=== PATIENT | male | born 1990 | race Caucasian/White ===

== ENCOUNTER 2020-08-29 17:27 | Outpatient (REF) | payer OTHER, SELFPAY | END 2020-08-29 17:28 | disposition home or self-care (01) | LOC: HO.LAB 17:27 | PROVIDERS: Visit Provider Internal Medicine | DX: Z20.828 Contact with and (suspected) exposure to other viral communicable diseases (principal) | CPT/HCPCS: U0003 ==

== ENCOUNTER 2020-12-28 07:50 | Outpatient (REF) | payer OTHER, SELFPAY | END 2020-12-28 07:51 | disposition home or self-care (01) | LOC: HO.LAB 07:50 | PROVIDERS: Visit Provider Internal Medicine | DX: Z20.822 Contact with and (suspected) exposure to COVID-19 (principal) | CPT/HCPCS: 36415; C9803; U0003; U0005 ==

== ENCOUNTER 2021-03-01 12:13 | Outpatient (REF) | payer OTHER, SELFPAY ==
[2021-03-01 12:31] LABS: COVID-19 Test Negative (Negative)
== END 2021-03-01 12:14 | disposition home or self-care (01) ==
LOC: HO.LAB 12:13
PROVIDERS: Visit Provider Internal Medicine
DX: Z20.822 Contact with and (suspected) exposure to COVID-19 (principal)
CPT/HCPCS: 36415; 87635; C9803

== ENCOUNTER 2021-09-11 12:01 | Outpatient (REF) | payer OTHER, SELFPAY ==
[2021-09-11 12:37] LABS: COVID-19 Test Negative (Negative)
== END 2021-09-11 12:02 | disposition home or self-care (01) ==
LOC: HO.LAB 12:01
PROVIDERS: Visit Provider Internal Medicine
DX: Z20.822 Contact with and (suspected) exposure to COVID-19 (principal)
CPT/HCPCS: 36415; 87635; C9803

== ENCOUNTER 2022-04-01 07:54 | Outpatient (REF) | payer OTHER, SELFPAY ==
[2022-04-01 08:34] LABS: Hematocrit 48.8 % (42.0-52.0); Hemoglobin 17.1 g/dl (14.0-18.0); Mean Corpuscular Hemoglobin 29.8 pg (27.0-33.0); Mean Platelet Volume 9.9 fL (9.4-12.4); Platelet Count 169 X10*3/uL (160-400); Red Blood Count 5.74 X10*6/uL (4.60-5.80); Red Cell Distribution Width 12.7 % (11.0-16.0); White Blood Count 6.4 X10*3/uL (4.8-10.8)
[2022-04-01 08:47] LABS: Estimated Average Glucose 80 mg/dL; Hemoglobin A1c % 4.4 %
[2022-04-01 08:54] LABS: Alanine Aminotransferase 50 U/L (0-40); Albumin Level 4.6 g/dL (3.5-5.0); Alkaline Phosphatase 118 U/L (39-117); Anion Gap 13 (12-20); Aspartate Amino Transferase 33 U/L (5-37); Blood Urea Nitrogen 15 mg/dL (9-16); Calcium 9.2 mg/dL (8.4-10.2); Carbon Dioxide 26 mmol/L (22-29); Chloride 104 mmol/L (96-108); Cholesterol 195 mg/dL; Estimated Glomerular Filt Rate > 60; Glucose Fasting 112 mg/dL (60-99); HDL Cholesterol 46 mg/dL; LDL Cholesterol Calculated 103 mg/dl; Potassium 4.8 mmol/L (3.3-5.1); Sodium 138 mmol/L (135-145); Total Protein 7.8 g/dL (6.5-8.0); Triglycerides 231 mg/dL
[2022-04-01 09:15] LABS: TSH reflex Free T4 1.44 uIU/mL (0.32-4.0)
== END 2022-04-01 07:55 | disposition home or self-care (01) ==
LOC: HO.LAB 07:54
PROVIDERS: Visit Provider Physician Assistant
DX: Z13.220 Encounter for screening for lipoid disorders (principal); Z13.29 Encounter for screening for other suspected endocrine disorder
CPT/HCPCS: 36415; 80053; 80061; 83036; 84443; 85027

== ENCOUNTER 2023-07-18 08:26 | Outpatient (AMB) | payer BC, SELFPAY ==
--- NOTE | 2023-07-18 08:37 | A.OFFPC_ITS ---
Vital Signs 07/18/23 08:39 Height 5 ft 10 in Weight 217 lb 8 oz BMI 31.2 BP 130/72 Blood Pressure Location Lt brachial Position Sitting Pulse 80 Pulse Source Pulse Oximeter Pulse Oximetry (%) 99 Oxygen Delivery Method Room Air Intake Visit Reasons: Bp Med review Intake Note: Patient is here to follow up on HTN and med review. 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 Reed Press Feeder: Not Required per policy Accompanied by: Self / Same As Patient Allergies sulfamethoxazole [From BACTRIM] Allergy (Mild, Verified 07/18/23 08:49) UNKNOWN trimethoprim [From BACTRIM] Allergy (Mild, Verified 07/18/23 08:49) UNKNOWN Medication List - Last Reconciled 07/18/23 by BUSHRA Cameron hydrochlorothiazide 25 mg PO DAILY 90 days Tobacco use date assessed: 07/18/23 Dental Screening Dental Screen Date: 07/18/23 Did you have a dental visit in the last 12 months?: Yes Did you have a dental problem in the last 6 months where you did not have access to dental care?: No Was dental information given to patient?: Patient has dentist HPI HPI Comments History of Present Illness Details 33-year-old male past medical history si gnificant for hy pertriglyceridemia, hypertension and obesity. Patient of Enrico Moya last seen in March 2022. Patient presents today for hypertension follow-up. Patient states bloodpressure continues to be elevated running below 130's/ 70's-80. Patient requesting an increase in his blood pressure medication. Patient reports he does try to be consistent follow low-salt diet, states he has been less consistent hi s exercise but he is trying to get back on track with that. [facility] Medical History (Updated 04/01/22 @ 09:46 by Jayjay Moya PA-C) Tenonitis of left orbit HTN, goal to be determined Surgical History (Updated 07/18/23 @ 08:42 by CITLALY Leger) No pertinent past surgical history Family History (Updated 07/18/23 @ 08:42 by CITLALY Leger) Mother FH: HTN (hypertension) Heart attack, Onset Age: 68 Father No problems noted. 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 1. Little interest or pleasure in doing things: not at all 2. Feeling down, depressed, or hopeless: not at all 3. Trouble falling or staying asleep, or sleeping too much: not at all 4. Feeling tired or having little energy: not at all 5. Poor appetite or overeating: not at all 6. Feeling bad about yourself - or that you are a failure or have let yourself or your family down: not at all 7. Trouble concentrating on things, such as reading the newspaper or watching television: not at all 8. Moving or speaking so slowly that other people could have noticed. Or the opposite - being so fidgety or restless that you have been moving around a lot more than usual: not at all 9. Thoughts that you would be better off or of hurting yourself in some way: not at all Total score: 0 Depression Screening Interpretation: Negative Source: Developed by Drs. Albert Cleveland, Carine Sweet, Tate Vidales and colleagues, with an educational praneeth from [employer]. Thrive Questionnaire Date Thrive assessed: 07/18/23 I am a: Patient What is your living situation today?: I have a steady place to live Within the past 12 months, did the food you bought not last and you didn't have the money to get more?: Never true Within the past 12 months, did you worry whether your food would run out before you got money to buy more?: Never true Do you have trouble paying for medicines?: No Do you have trouble getting transportation to medical appointments?: No Do you have trouble paying your heating and electricity bill?: No Do you have trouble taking care of your child, family member or friend?: No Do you have trouble with day-to-day activities such as bathing, preparing meals, shopping, managing finances, etc.?: No Are you currently unemployed and looking for a job?: No Are you interested in more education?: No Currently or been in a relationship where the following occur: no concerns reported AUDIT C Alcohol Use Questionnaire (AUDIT-C) 1. How often do you have a drink containing alcohol?: 2-4 times a month 2. How many drinks containing alcohol do you have on a typical day when you are drinking?: 1 or 2 Total Score: 2 DAPHNEY-7 AMB Questionnaire DAPHNEY-7 Date DAPHNEY - 7 assessed: 07/18/23 Feeling nervous, anxious, or on edge: 0 = Not at all Not being able to stop or control worryin = Not at all Worrying too much about different things: 0 = Not at all Trouble relaxin = Not at all Being so restless that it is hard to sit still: 0 = Not at all Becoming easily annoyed or irritable: 0 = Not at all Feeling afraid as if something awful might happen: 0 = Not at all Total DAPHNEY-7 score (0-4 normal; 5-9 mild; 10-14 moderate; 15-21 severe): 0 Source: Developed by Drs. Albert Cleveland, Carine Sweet, Tate Vidales and colleagues, with an educational praneeth from [employer]. Review of Systems Const Denies chills, Denies fatigue, Denies fever(s) and Denies poor appetite Eyes Denies no additional complaints ENT Reports Normal hearing present Card Denies chest pain, Denies syncope, Denies rapid heart rate and Denies dyspnea Resp Denies cough and Denies dyspnea GI Denies change in stool character, Denies constipation, Denies diarrhea, Denies nausea and Denies vomiting Denies dysuria, Denies urinary frequency and Denies urinary urgency Neuro Reports Normal hearing present, Denies confusion and Denies syncope Psych Denies confusion Endo Denies fatigue Physical exam (Primary Care) Vital Signs: Last Vital Signs Pulse 80 07/18/23 08:39 BP 130/72 07/18/23 08:39 Pulse Ox 99 07/18/23 08:39 Oxygen Delivery Method Room Air 07/18/23 08:39 BMI result Body Mass Index 31.2 Tobacco/Smoking Status: Tobacco use Status Tobacco use date assessed 07/18/23 07/18/23 08:43 Patient Tobacco Use Status Never used Tobacco 07/18/23 08:43 Tobacco use type Cigarette 07/18/23 08:43 e-Cigarette/Vaping Use Never Used 07/18/23 08:43 PHQ-9: PHQ-9 Score PHQ-9: Total score 0 07/18/23 08:46 Depression Screening Interpretation: Negative Thrive Assessment: Date of Thrive Assessment Date Thrive assessed 07/18/23 07/18/23 08:43 Currently or been in a relationship where the following occur: no concerns reported Const General: No confusion Orientation/consciousness: No confusion HENMT Head: Yes normocephalic and Yes atraumatic Eyes Conjunctivae: conjunctivae normal Chest Chest palpation & inspection: normal inspection of the chest Resp Effort & Inspection: normal respiratory effort Auscultation: clear to auscultation bilaterally, no crackles, no rhonchi and no wheezes Cardio Rate: regular rate Rhythm: regular rhythm Heart sounds: S1 normal heart sound present and S2 normal heart sound present GI Inspection: Yes normal to inspection Neuro General: No confusion Cranial nerves: Yes Normal hearing present Extrem General: No edema Assessment and Plan Assessment & Plan (1) HTN (hypertension): Code(s): I10 - Essential (primary) hypertension Qualifiers: Hypertension type: primary hypertension Qualified Code(s): I10 - Essential (primary) hypertension Plan: Will increase hydrochlorothiazide to 37.5mg daily. Patient advised to continue to follow low-salt diet and exercise. (2) Obese: Code(s): E66.9 - Obesity, unspecified Qualifiers: Obesity type: due to excess calories Obesity classification: adult class 1 (BMI 30 - 34.9) Serious obesity comorbidity presence: without serious comorbidity Body mass index: BMI 31.0-31.9 Qualified Code(s): E66.09 - Other obesity due to excess calories; Z68.31 - Body mass index [BMI] 31.0-31.9, adult Plan: Patient recommended diet exercise to reduce BMI Plan Follow-up 3 months for physical exam. Medications: Changed From hydrochlorothiazide 25 mg PO DAILY 90 days 90 tabs 1RF I10 - Essential (primary) hypertension To hydrochlorothiazide 37.5 mg (1.5 x 25 mg) PO DAILY 135 tabs 1RF 90 days I10 - Essential (primary) hypertension Coding Level of Care Code Est Pt Level 3 (33573) Diagnoses Primary hypertension I10 Hypertension type: primary hypertension Class 1 obesity due to excess calories without serious comorbidity with body mass index (BMI) of 31.0 to 31.9 in adult E66.09; Z68.31 Obesity type: due to excess calories Obesity classification: adult class 1 (BMI 30 - 34.9) Serious obesity comorbidity presence: without serious comorbidity Body mass index: BMI 31.0-31.9
[2023-07-18 08:39] VITALS: BP 130/72; PULSE 80; O2SAT 99; BMI 31.2
== END 2023-07-18 08:54 | disposition home or self-care (01) ==
PROVIDERS: PCP Physician Assistant; Visit Provider Nurse Practitioner Family
DX: I10 Essential (primary) hypertension (principal); E66.09 Other obesity due to excess calories; Z68.31 Body mass index [BMI] 31.0-31.9, adult
CPT/HCPCS: 99213

== ENCOUNTER 2024-04-28 15:11 | Outpatient (AMB) | payer BC, SELFPAY ==
[2024-04-28 15:18] VITALS: BP 158/98; PULSE 90; O2SAT 100; BMI 29.3
--- NOTE | 2024-04-28 15:18 | MHC.PC.OV ---
Vital Signs 04/28/24 15:18 04/28/24 15:40 Height 5 ft 10 in Weight 204 lb BMI 29.3 BP 158/98 H 154/80 H Blood Pressure Location Lt brachial Position Sitting Pulse 90 Pulse Source Pulse Oximeter Pulse Oximetry (%) 100 Oxygen Delivery Method Room Air Intake Visit Reasons: PE Intake Note: Patient is here today for a physical. 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 Accompanied by: Self / Same As Patient Allergies sulfamethoxazole [From BACTRIM] Allergy (Mild, Verified 04/28/24 15:34) UNKNOWN trimethoprim [From BACTRIM] Allergy (Mild, Verified 04/28/24 15:34) UNKNOWN Medication List - Last Reconciled 04/28/24 by Jayjay Moya PA-C hydrochlorothiazide 37.5 mg (1.5 x 25 mg) PO DAILY 90 days Tobacco use date assessed: 04/28/24 Dental Screening Dental Screen Date: 04/28/24 Did you have a dental visit in the last 12 months?: Yes Did you have a dental problem in the last 6 months where you did not have access to dental care?: No Was dental information given to patient?: Patient has dentist HPI PE HPI Details Patient is a 34-year-old male here today for new patient annual physical. Patient has a past medical history significant for hypertension and obesity. Concerns--> reports he had gotten an ultrasound recently and did show a gallbladder polyp that may have increased in size. He has no GI symptoms or abdominal pains. He would like another ultrasound for evaluation. .. Hypertension: Patient continues on hydrochlorothiazide 37 mg. Blood pressure today in office elevated, he does report taking his blood pressures at home with a cough though does not tries to readings. He does report having a family history of elevated blood pressure and reports last week his mother did have a heart attack due to hypertension. Vaccines: Up-to-date with COVID vaccines, needs tetanus vaccine. [facility] Medical History Tenonitis of left orbit HTN, goal to be determined Surgical History No pertinent past surgical history Family History Mother FH: HTN (hypertension) Heart attack, Onset Age: 68 Father No problems noted. Other Substance use disorder Social History (Updated 04/28/24 @ 15:38 by Jayjay Moya PA-C) Housing: Condominium Alcohol intake: current Alcohol intake frequency: a few times a month Alcohol type: beer Patient Tobacco Use Status: Never used Tobacco Tobacco use type: Cigarette e-Cigarette/Vaping Use: Never Used service: No Current occupational status: employed Current occupation: [employer] Cognitive needs: No Hearing needs: No Vision needs: No Questionnaire PHQ-9 Over the last 2 weeks, how often have you been bothered by any of the following problems? 1. Little interest or pleasure in doing things: not at all 2. Feeling down, depressed, or hopeless: not at all 3. Trouble falling or staying asleep, or sleeping too much: not at all 4. Feeling tired or having little energy: not at all 5. Poor appetite or overeating: not at all 6. Feeling bad about yourself - or that you are a failure or have let yourself or your family down: not at all 7. Trouble concentrating on things, such as reading the newspaper or watching television: not at all 8. Moving or speaking so slowly that other people could have noticed. Or the opposite - being so fidgety or restless that you have been moving around a lot more than usual: not at all 9. Thoughts that you would be better off or of hurting yourself in some way: not at all Total score: 0 Depression Screening Interpretation: Negative Depression Screening Done: Yes Source: Developed by Drs. Albert Cleveland, Carine Sweet, Tate Vidales and colleagues, with an educational praneeth from [employer]. Thrive Questionnaire Date Thrive assessed: 04/28/24 I am a: Patient What is your living situation today?: I have a steady place to live Within the past 12 months, did the food you bought not last and you didn't have the money to get more?: Never true Within the past 12 months, did you worry whether your food would run out before you got money to buy more?: Never true Do you have trouble paying for medicines?: No Do you have trouble getting transportation to medical appointments?: No Do you have trouble paying your heating and electricity bill?: No Do you have trouble taking care of your child, family member or friend?: No Do you have trouble with day-to-day activities such as bathing, preparing meals, shopping, managing finances, etc.?: No Are you currently unemployed and looking for a job?: No Are you interested in more education?: No Please select the resources that you would like help with: None Currently or been in a relationship where the following occur: No concerns reported THRIVE Score: 0 AUDIT C Alcohol Use Questionnaire (AUDIT-C) 1. How often do you have a drink containing alcohol?: 2-4 times a month 2. How many drinks containing alcohol do you have on a typical day when you are drinking?: 1 or 2 3. How often do you have six or more drinks on one occasion?: Never Total Score: 2 DAPHNEY-7 AMB Questionnaire DAPHNEY-7 Date DAPHNEY - 7 assessed: 04/28/24 Feeling nervous, anxious, or on edge: 0 = Not at all Not being able to stop or control worryin = Not at all Worrying too much about different things: 0 = Not at all Trouble relaxin = Not at all Being so restless that it is hard to sit still: 0 = Not at all Becoming easily annoyed or irritable: 0 = Not at all Feeling afraid as if something awful might happen: 0 = Not at all Total DAPHNEY-7 score (0-4 normal; 5-9 mild; 10-14 moderate; 15-21 severe): 0 Source: Developed by Drs. Albert Cleveland, Carine Sweet, Tate Vidales and colleagues, with an educational praneeth from [employer]. DAPHNEY-7 Assessment Billing DAPHNEY-7 Assessment Tool: DAPHNEY-7 Assessment 56522 Review of Systems Const Denies body aches, Denies chills, Denies excessive sweating, Denies fatigue, Denies fever(s) and Denies headache(s) Eyes Denies blurry vision ENT Denies dysphagia, Denies vertigo, Denies dizziness, Denies headache(s), Denies hearing loss and Denies tinnitus Card Denies chest pain, Denies chest pain with activity, Denies syncope, Denies irregular heart rhythm and Denies dyspnea Resp Denies chest congestion, Denies cough, Denies hemoptysis, Denies dyspnea and Denies wheezing GI Denies abdominal pain, Denies melena, Denies hematochezia, Denies coffee ground emesis, Denies dysphagia, Denies diarrhea, Denies nausea and Denies vomiting Denies difficulty urinating, Denies dysuria, Denies urinary frequency, Denies urinary hesitancy and Denies urinary urgency Musc Denies arthralgias, Denies limited range of motion, Denies muscle cramps and Denies muscle weakness Skin/Breast Denies rash and Denies skin ulcer Neuro Denies Abnormal speech present, Denies confusion, Denies vertigo, Denies dizziness, Denies syncope, Denies headache(s), Denies memory loss and Denies seizure-like activity Psych Denies anxiety, Denies confusion, Denies depression, Denies memory loss, Denies panic attacks and Denies paranoia Endo Denies excessive sweating, Denies fatigue, Denies flushing, Denies polydipsia and Denies polyuria Aller/Immun Denies wheezing Physical exam (Primary Care) Vital Signs: Last Vital Signs Pulse 90 04/28/24 15:18 BP 154/80 H 04/28/24 15:40 Pulse Ox 100 04/28/24 15:18 Oxygen Delivery Method Room Air 04/28/24 15:18 BMI result Body Mass Index 29.3 Tobacco/Smoking Status: Tobacco use Status Tobacco use date assessed 04/28/24 04/28/24 15:20 Patient Tobacco Use Status Never used Tobacco 04/28/24 15:38 Tobacco use type Cigarette 04/28/24 15:38 e-Cigarette/Vaping Use Never Used 04/28/24 15:38 PHQ-9: PHQ-9 Score PHQ-9: Total score 0 04/28/24 15:53 Depression Screening Interpretation: Negative Thrive Assessment: Date of Thrive Assessment Date Thrive assessed 04/28/24 04/28/24 15:22 Currently or been in a relationship where the following occur: No concerns reported Const General: cooperative, comfortable, no acute distress, alert and awake; No confusion Orientation/consciousness: oriented to person, oriented to place, patient oriented x3 and No confusion HENMT Head: Yes normocephalic Ears: external ears normal and TM's normal bilaterally Face and sinus: No sinus tenderness Mouth: Normal oral and palatal mucosa present and tongue normal Teeth and gingiva: dentition normal and gingiva normal Throat: Yes posterior oropharynx normal, Yes tonsils normal and Yes uvula midline Eyes Conjunctivae: conjunctivae normal Sclerae: sclerae normal Pupils: Equal, round and reactive pupils present EOM: EOMs intact bilaterally Direct Ophthalmoscopy: No no photophobia Neck Neck: Yes no lymphadenopathy, No tender and Yes no JVD Thyroid: Thyroid normal Carotids: no bruits Chest Chest palpation & inspection: no tenderness Resp Effort & Inspection: normal respiratory effort, no audible wheezes, not labored and no stridor Auscultation: no crackles, no rales, no rhonchi and no wheezes Cardio Jugular venous distension: no JVD Rate: regular rate, not bradycardic and not tachycardic Rhythm: regular rhythm Bruits: no carotid bruits Peripheral pulses: Peripheral pulses 2+ throughout GI Inspection: Yes normal to inspection, No abdominal wall ecchymosis and No visible herniation Palpation (GI): Soft to palpation, nontender, no guarding, not rigid and No hepatosplenomegaly present Auscultation: normoactive bowel sounds General: Yes no CVA tenderness Back/Spine/Pelvis Back: no CVA tenderness and No back tenderness Cervical Spine: cervical ROM normal Thoracic/Lumbar Spine: thoracic and lumbar spine normal to inspection, straight leg raise negative bilaterally, No thoraco-lumbar ROM limited and No lumbar spinal tenderness Skin Lesions: no lesions Rashes: no rashes Wounds: no wounds Neuro General: oriented to person, oriented to place, patient oriented x3, CN's II-XI intact bilaterally and No confusion Cranial nerves: Yes Equal, round and reactive pupils present and Yes Normal accommodation reflex present Cognition (Neuro): normal cognition Speech: No Abnormal speech present Gait exam (Neuro): Normal gait present Motor exam (neuro): 5/5 motor strength present throughout Extrem Right upper extremity: full ROM; no cyanosis Left upper extremity: full ROM; no cyanosis Right lower extremity: no edema Left lower extremity: no edema Psych Appearance: grossly normal Mental Status: mental status grossly normal Affect: normal affect Attitude: cooperative Thought process: Normal thought process present Assessment and Plan Assessment & Plan (1) Annual physical exam: Code(s): Z00.00 - Encounter for general adult medical examination without abnormal findings (2) HTN (hypertension): Code(s): I10 - Essential (primary) hypertension Qualifiers: Hypertension type: primary hypertension Qualified Code(s): I10 - Essential (primary) hypertension Plan: Patient Blood pressure elevated Today in office. Believes he had a stressful day and this is the reason for his elevated blood pressure. He will implement more granular blood pressure readings at home and if above 140/90 will consider adding on new blood pressure medication. (3) Hypertriglyceridemia: Code(s): E78.1 - Pure hyperglyceridemia Plan: Patient has a history of hypertriglyceridemia. Has made lifestyle modifications and has lost weight since last office visit. Will recheck fasting lipid panel with goal triglycerides to be below 200. (4) Gallbladder polyp: Code(s): K82.4 - Cholesterolosis of gallbladder Plan: Has a history of gallbladder polyp. Has no GI symptoms. Will send for limited abdominal ultrasound evaluate gallbladder polyp. Orders: Orders US abdomen limited 04/28/24 K82.4 - Cholesterolosis of gallbladder Patient Instructions: Goal: Blood pressure to be below 140/90 Barriers: Adherence to physical activity and healthy eating habits Coding Level of Care Code Est Pt Prev Care 18-39y(56823) Diagnoses Annual physical exam Z00.00 Primary hypertension I10 Hypertension type: primary hypertension Hypertriglyceridemia E78.1 Gallbladder polyp K82.4 Additional Codes DAPHNEY-7 Assessment Billing - DAPHNEY-7 Assessment Tool: DAPHNEY-7 Assessment [id number] ([id number])
[2024-04-28 15:40] VITALS: BP 154/80
== END 2024-04-28 15:57 | disposition home or self-care (01) ==
PROVIDERS: PCP Physician Assistant; Visit Provider Physician Assistant
DX: Z00.00 Encounter for general adult medical examination without abnormal findings (principal); I10 Essential (primary) hypertension; E78.1 Pure hyperglyceridemia; K82.4 Cholesterolosis of gallbladder
CPT/HCPCS: 99395

== ENCOUNTER 2024-05-17 13:56 | Outpatient (AMB) | payer BC, SELFPAY ==
--- NOTE | 2024-05-17 13:58 | MHC.PC.OV ---
Vital Signs 05/17/24 14:01 05/17/24 14:12 Height 5 ft 10 in Weight 212 lb 4 oz BMI 30.5 BP 160/100 H 140/88 H Blood Pressure Location Lt brachial Position Sitting Pulse 86 Pulse Source Pulse Oximeter Pulse Oximetry (%) 99 Oxygen Delivery Method Room Air Intake Visit Reasons: Follow-up blood pressure/ lab results Intake Note: Patient is here to follow up on BP CHECK. Internal Medicine Hospitalist Required: No Accompanied by: Self / Same As Patient Allergies sulfamethoxazole [From BACTRIM] Allergy (Mild, Verified 05/17/24 14:14) UNKNOWN trimethoprim [From BACTRIM] Allergy (Mild, Verified 05/17/24 14:14) UNKNOWN Medication List - Last Reconciled 05/17/24 by Jayjay Moya PA-C hydrochlorothiazide 37.5 mg (1.5 x 25 mg) PO DAILY 90 days Tobacco use date assessed: 04/28/24 Dental Screening Dental Screen Date: 04/28/24 HPI Follow-up blood pressure/ lab results HPI Details Patient is a 34-year-old male here today for blood pressure check. Today's blood pressure in office elevated. He reports home blood pressure readings are 140s to 160 systolic. Fortunately he is asymptomatic without any chest discomfort, dizziness, presyncopal episodes or headaches. PLAN: Will Add on lisinopril to his blood pressure med regime in reduce his dose of hydrochlorothiazide. He will continue monitoring blood pressure at home with goal blood pressure to be below 140/90 [facility] Medical History Tenonitis of left orbit HTN, goal to be determined Surgical History No pertinent past surgical history Family History Mother FH: HTN (hypertension) Heart attack, Onset Age: 68 Father No problems noted. Other Substance use disorder Social [facility] Alcohol intake: current Alcohol intake frequency: a few times a month Alcohol type: beer Patient Tobacco Use Status: Never used Tobacco Tobacco use type: Cigarette e-Cigarette/Vaping Use: Never Used service: No Current occupational status: employed Current occupation: [employer] Cognitive needs: No Hearing needs: No Vision needs: No Questionnaire Thrive Questionnaire Date Thrive assessed: 04/28/24 DAPHNEY-7 AMB Questionnaire DAPHNEY-7 Date DAPHNEY - 7 assessed: 04/28/24 Source: Developed by Drs. Albert Cleveland, Carine Sweet, Tate Vidales and colleagues, with an educational praneeth from [employer]. Review of Systems Const Denies headache(s) Eyes Denies loss of vision ENT Denies vertigo, Denies dizziness, Denies headache(s) and Denies sore throat Card Denies chest pain, Denies leg edema and Denies lightheadedness Resp Denies cough, Denies hemoptysis and Denies wheezing GI Denies abdominal pain, Denies melena, Denies constipation, Denies diarrhea and Denies vomiting Denies dysuria, Denies urinary frequency and Denies urinary urgency Musc Denies arthralgias, Denies joint swelling, Denies numbness and Denies tingling Neuro Denies Abnormal speech present, Denies behavioral changes, Denies vertigo, Denies dizziness, Denies headache(s), Denies loss of vision, Denies memory loss, Denies numbness and Denies tingling Psych Denies anxiety, Denies behavioral changes, Denies depression, Denies memory loss and Denies panic attacks Tomer/Lymph Denies easy bleeding and Denies easy bruising Aller/Immun Denies wheezing Physical exam (Primary Care) Vital Signs: Last Vital Signs Pulse 86 05/17/24 14:01 BP 140/88 H 05/17/24 14:12 Pulse Ox 99 05/17/24 14:01 Oxygen Delivery Method Room Air 05/17/24 14:01 BMI result Body Mass Index 30.5 Tobacco/Smoking Status: Tobacco use Status Tobacco use date assessed 04/28/24 05/17/24 14:00 Patient Tobacco Use Status Never used Tobacco 05/17/24 14:00 Tobacco use type Cigarette 05/17/24 14:00 e-Cigarette/Vaping Use Never Used 05/17/24 14:00 Thrive Assessment: Date of Thrive Assessment Date Thrive assessed 04/28/24 05/17/24 14:00 Const General: healthy appearing, no acute distress, alert and awake Nutritional Appearance: well nourished Orientation/consciousness: oriented to person, oriented to place and oriented to time HENMT Ears: TM's normal bilaterally General nose exam: Normal nasal mucous membranes and turbinates present Eyes Conjunctivae: conjunctivae normal Sclerae: sclerae normal Pupils: Equal, round and reactive pupils present Neck Neck: Yes no lymphadenopathy and Yes no JVD Thyroid: Thyroid normal Carotids: no bruits Resp Effort & Inspection: normal respiratory effort and not tachypneic Auscultation: no crackles, no rales, no rhonchi and no wheezes Cardio Rate: regular rate Rhythm: regular rhythm Heart sounds: no murmurs and normal S1 and S2 GI Palpation (GI): Soft to palpation, nontender, no hepatomegaly and no splenomegaly Auscultation: normal bowel sounds Skin General skin exam: no rashes or lesions noted and dry skin Neuro General: oriented to person, oriented to place and oriented to time Cranial nerves: Yes Equal, round and reactive pupils present Speech: No Abnormal speech present Gait exam (Neuro): Normal gait present Motor exam (neuro): no tremor noted Extrem Right upper extremity: full ROM Left upper extremity: full ROM Right lower extremity: full ROM; no edema Left lower extremity: full ROM; no edema Psych Mental Status: mental status grossly normal Speech and movement: Normal speech and movement present Affect: normal affect Attitude: cooperative Thought process: Normal thought process present Assessment and Plan Assessment & Plan (1) HTN (hypertension): Code(s): I10 - Essential (primary) hypertension Qualifiers: Hypertension type: primary hypertension Qualified Code(s): I10 - Essential (primary) hypertension Plan: Patient's blood pressure elevated today in office and has been elevated on readings. Will add on lisinopril to his blood pressure med regime for better blood pressure control. Will follow-up been a next 4-6 weeks to evaluate blood pressure and labs. Goal blood pressures to be below 140/90 Medications: New lisinopril-hydrochlorothiazide 10-12.5 mg 1 tab PO DAILY 30 tabs 1RF 30 days I10 - Essential (primary) hypertension Discontinued hydrochlorothiazide Discontinued Reason: Doctor's Order 37.5 mg (1.5 x 25 mg) PO DAILY 90 days 135 tabs 0RF I10 - Essential (primary) hypertension Coding Level of Care Code Est Pt Level 3 (48259) Diagnoses Primary hypertension I10 Hypertension type: primary hypertension
[2024-05-17 14:01] VITALS: BP 160/100; PULSE 86; O2SAT 99; BMI 30.5
[2024-05-17 14:12] VITALS: BP 140/88
== END 2024-05-17 14:17 | disposition home or self-care (01) ==
PROVIDERS: PCP Physician Assistant; Visit Provider Physician Assistant
DX: I10 Essential (primary) hypertension (principal)
CPT/HCPCS: 99213

== ENCOUNTER 2024-05-26 08:14 | Outpatient (REF) | payer BC, SELFPAY ==
--- NOTE | ~2024-05-26 | US_ITS ---
EXAMINATION: US ABDOMEN COMPLETE CLINICAL INFORMATION: Cholesterolosis of the gallbladder. COMPARISON: None available. TECHNIQUE: Real-time imaging of the abdominal viscera. Limited visualization due to bowel gas. FINDINGS: PANCREAS: Limited visualization of pancreatic tail and head. Imaged portion of pancreatic body is unremarkable. ABDOMINAL AORTA: Limited visualization. Imaged portion of the mid to distal abdominal aorta is within normal limits in caliber. INFERIOR VENA CAVA: Visualized portions are normal. LIVER: Increased hepatic parenchymal heterogeneity and echogenicity could be associated with hepatocellular disease/hepatic steatosis and substantially limits visualization. Correlation with liver function tests and clinical exam recommended to determine further management. GALLBLADDER: A 0.8 cm gallbladder polyp. No gallbladder wall thickening. COMMON BILE DUCT: Normal in caliber measuring 0.3 cm in diameter. RIGHT KIDNEY: No hydronephrosis. No renal calculi. Limited visualization. The kidney measures 12.3 cm in maximum dimension. LEFT KIDNEY: No hydronephrosis. No renal calculi. Limited visualization. The kidney measures 13.6 cm in maximum dimension. SPLEEN: Normal. The spleen measures 15.1 cm in maximum dimension. FREE FLUID: None. US/US abdomen complete IMPRESSION: 1. Increased hepatic parenchymal heterogeneity and echogenicity could be associated with hepatocellular disease/hepatic steatosis and substantially limits visualization. Correlation with liver function tests and clinical exam recommended to determine further management. 2. A 0.8 cm gallbladder polyp. Recommend follow-up ultrasound in 12 months. Surgical consultation recommended.
[2024-05-26 09:17] LABS: Hematocrit 45.8 % (42.0-52.0); Hemoglobin 16.5 g/dl (14.0-18.0); Mean Corpuscular Hemoglobin 31.5 pg (27.0-33.0); Mean Corpuscular Volume 87.4 fL (80.0-98.0); Mean Platelet Volume 10.4 fL (9.4-12.4); Platelet Count 229 X10*3/uL (160-400); Red Blood Count 5.24 X10*6/uL (4.60-5.80); Red Cell Distribution Width 12.4 % (11.0-16.0); White Blood Count 6.5 X10*3/uL (4.8-10.8)
[2024-05-26 09:48] LABS: Alanine Aminotransferase 36 U/L (0-40); Albumin Level 4.6 g/dL (3.5-5.0); Alkaline Phosphatase 90 U/L (39-117); Anion Gap 12 (12-20); Aspartate Amino Transferase 29 U/L (5-37); Bilirubin Total 1.3 mg/dL (0.0-1.0); Blood Urea Nitrogen 14 mg/dL (9-16); Calcium 9.1 mg/dL (8.4-10.2); Carbon Dioxide 29 mmol/L (22-29); Chloride 102 mmol/L (96-108); Cholesterol 168 mg/dL (<200); Estimated Glomerular Filt Rate > 60; Glucose Fasting 92 mg/dL (60-99); HDL Cholesterol 45 mg/dL (>40); LDL Cholesterol Calculated 90 mg/dL (<100); Potassium 3.9 mmol/L (3.3-5.1); Sodium 139 mmol/L (135-145); Total Protein 7.8 g/dL (6.5-8.0); Triglycerides 169 mg/dL (<150)
[2024-05-26 10:21] LABS: Creatinine Urine 210.14 mg/dL; Microalbumin Urine < 5.0 mg/L
== END 2024-05-26 08:15 | disposition home or self-care (01) ==
LOC: HO.LAB 08:14
PROVIDERS: PCP Physician Assistant; Visit Provider Physician Assistant
DX: I10 Essential (primary) hypertension (principal); E78.1 Pure hyperglyceridemia; K82.4 Cholesterolosis of gallbladder
CPT/HCPCS: 36415; 76700; 80053; 80061; 82043; 82570; 85027

== ENCOUNTER 2024-06-25 08:20 | Outpatient (AMB) | payer BC, SELFPAY ==
[2024-06-25 08:21] VITALS: BP 148/84; PULSE 101; O2SAT 99; BMI 29.7
--- NOTE | 2024-06-25 08:21 | A.OFFPC_ITS ---
Vital Signs 06/25/24 08:21 Height 5 ft 10 in Weight 207 lb BMI 29.7 BP 148/84 H Blood Pressure Location Lt brachial Position Sitting Pulse 101 H Pulse Source Pulse Oximeter Pulse Oximetry (%) 99 Oxygen Delivery Method Room Air Intake Visit Reasons: f/u HTN Intake Note: Patient is here to follow up on HTN Network Support Required: No Allergies sulfamethoxazole [From BACTRIM] Allergy (Mild, Verified 06/25/24 08:21) UNKNOWN trimethoprim [From BACTRIM] Allergy (Mild, Verified 06/25/24 08:21) UNKNOWN Medication List - Last Reconciled 06/25/24 by Bhumika Moseley PA-C lisinopril-hydrochlorothiazide 10-12.5 mg 1 tab PO DAILY 30 days Tobacco use date assessed: 04/28/24 Dental Screening Dental Screen Date: 04/28/24 HPI f/u HTN HPI Details 34-year-old male with past medical histo ry of hypertension, hypercholesterolemia last seen by PA coming in for follow up on hypertension. Patient states he has been monitoring his blood pressure at home and all of the values have been less than 140/90. Most of the values are in the 130s over 80s. He has been working on decreasing salt in his diet as well as regular exercise. [facility] Medical History Tenonitis of left orbit HTN, goal to be determined Surgical History No pertinent past surgical history Family History Mother FH: HTN (hypertension) Heart attack, Onset Age: 68 Father No problems noted. Other Substance use disorder Social History Housing: Condominium Alcohol intake: current Alcohol intake frequency: a few times a month Alcohol type: beer Patient Tobacco Use Status: Never used Tobacco Tobacco use type: Cigarette e-Cigarette/Vaping Use: Never Used service: No Current occupational status: employed Current occupation: [employer] Cognitive needs: No Hearing needs: No Vision needs: No Questionnaire PHQ-9 Over the last 2 weeks, how often have you been bothered by any of the following problems? 1. Little interest or pleasure in doing things: not at all 2. Feeling down, depressed, or hopeless: not at all 3. Trouble falling or staying asleep, or sleeping too much: not at all 4. Feeling tired or having little energy: not at all 5. Poor appetite or overeating: not at all 6. Feeling bad about yourself - or that you are a failure or have let yourself or your family down: not at all 7. Trouble concentrating on things, such as reading the newspaper or watching television: not at all 8. Moving or speaking so slowly that other people could have noticed. Or the opposite - being so fidgety or restless that you have been moving around a lot more than usual: not at all 9. Thoughts that you would be better off or of hurting yourself in some way: not at all Total score: 0 Depression Screening Interpretation: Negative Depression Screening Done: Yes 72314 - PHQ-9 Billing: Yes Source: Developed by Drs. Albert Cleveland, Carine Sweet, Tate Vidales and colleagues, with an educational praneeth from [employer]. Thrive Questionnaire Date Thrive assessed: 04/28/24 I am a: Patient What is your living situation today?: I have a steady place to live Within the past 12 months, did the food you bought not last and you didn't have the money to get more?: Never true Within the past 12 months, did you worry whether your food would run out before you got money to buy more?: Never true Do you have trouble paying for medicines?: No Do you have trouble getting transportation to medical appointments?: No Do you have trouble paying your heating and electricity bill?: No Do you have trouble taking care of your child, family member or friend?: No Do you have trouble with day-to-day activities such as bathing, preparing meals, shopping, managing finances, etc.?: No Are you currently unemployed and looking for a job?: No Are you interested in more education?: No Please select the resources that you would like help with: None Currently or been in a relationship where the following occur: No concerns reported THRIVE Score: 0 AUDIT C Alcohol Use Questionnaire (AUDIT-C) 1. How often do you have a drink containing alcohol?: 2-4 times a month 2. How many drinks containing alcohol do you have on a typical day when you are drinking?: 1 or 2 3. How often do you have six or more drinks on one occasion?: Never Total Score: 2 DAPHNEY-7 AMB Questionnaire DAPHNEY-7 Date DAPHNEY - 7 assessed: 04/28/24 Source: Developed by Drs. Albert Cleveland, Carine Sweet, Tate Vidales and colleagues, with an educational praneeth from [employer]. Review of Systems Const Denies fever(s) Eyes Reports no additional complaints ENT Reports no additional complaints Card Denies chest pain, Denies lightheadedness and Denies dyspnea Resp Denies dyspnea GI Reports no additional complaints Musc Reports no additional complaints Physical exam (Primary Care) Vital Signs: Last Vital Signs Pulse 101 H 06/25/24 08:21 BP 148/84 H 06/25/24 08:21 Pulse Ox 99 06/25/24 08:21 Oxygen Delivery Method Room Air 06/25/24 08:21 BMI result Body Mass Index 29.7 Tobacco/Smoking Status: Tobacco use Status Tobacco use date assessed 04/28/24 06/25/24 08:22 Patient Tobacco Use Status Never used Tobacco 06/25/24 08:22 Tobacco use type Cigarette 06/25/24 08:22 e-Cigarette/Vaping Use Never Used 06/25/24 08:22 PHQ-9: PHQ-9 Score PHQ-9: Total score 0 06/25/24 08:35 Depression Screening Interpretation: Negative Thrive Assessment: Date of Thrive Assessment Date Thrive assessed 04/28/24 06/25/24 08:22 Currently or been in a relationship where the following occur: No concerns reported Const General: cooperative, healthy appearing, comfortable and no acute distress Orientation/consciousness: patient oriented x3 HENMT Head: Yes normocephalic Ears: hearing grossly normal bilaterally General nose exam: Normal external nose present Eyes General: appearance normal, both eyes and all related structures Conjunctivae: conjunctivae normal Neck Neck: Yes full ROM and Yes no lymphadenopathy Resp Effort & Inspection: normal respiratory effort Auscultation: clear to auscultation bilaterally, no crackles, no rales, no rhonchi and no wheezes Cardio Rate: regular rate Rhythm: regular rhythm Skin General skin exam: no rashes or lesions noted Neuro General: patient oriented x3 Gait exam (Neuro): Normal gait present Extrem General: Yes normal to inspection, Yes full ROM and No edema Psych Affect: normal affect Attitude: cooperative Insight: Good insight present (Psych) Judgement: Good judgement present (Psych) Assessment and Plan Assessment & Plan (1) HTN (hypertension): Code(s): I10 - Essential (primary) hypertension Qualifiers: Hypertension type: primary hypertension Qualified Code(s): I10 - Essential (primary) hypertension Plan: Discussed with patient the goal blood pressure is less than 140/90 and so long as his home values are within this range we can continue with current medical management. Continue with dietary and lifestyle changes. Continue on lisinopril-hydrochlorothiazide and follow up in 1 month. Plan This note was constructed using voice recognition software. While every effort has been made to ensure accuracy and ham stripper, still areas may have been included sometimes these areas may affect the content or meeting of the given symptoms. Total time spent caring for the patient today was 30 minutes. This includes time spent before the visit reviewing the chart, time spent during the visit, and time spent after the visit and documentation. Coding Level of Care Code Est Pt Level 3 (78045) Diagnoses Primary hypertension I10 Hypertension type: primary hypertension
== END 2024-06-25 08:45 | disposition home or self-care (01) ==
PROVIDERS: PCP Physician Assistant
DX: I10 Essential (primary) hypertension (principal)
CPT/HCPCS: 99213

== ENCOUNTER 2025-05-04 14:31 | Outpatient (AMB) | payer BC, SELFPAY ==
--- NOTE | 2025-05-04 14:36 | A.OFFPC_ITS ---
Vital Signs 05/04/25 14:41 Height 5 ft 10 in Weight 208 lb BMI 29.8 BP 150/94 H Blood Pressure Location Lt brachial Position Sitting Pulse 99 Pulse Source Pulse Oximeter Temp 97.3 F Temp Source Temporal Artery Scan Pulse Oximetry (%) 100 Oxygen Delivery Method Room Air Intake Visit Reasons: Annual Exam Poultry Killer Required: No Accompanied by: Self / Same As Patient Allergies sulfamethoxazole (From [facility]) Allergy (Mild, Verified 05/04/25 15:05) UNKNOWN trimethoprim (From [facility]) Allergy (Mild, Verified 05/04/25 15:05) UNKNOWN Medication List - Last Reconciled 05/04/25 by Jayjay Moya PA-C lisinopril-hydrochlorothiazide 10-12.5 mg 1 tab PO DAILY 90 days Tobacco use date assessed: 05/04/25 Dental Screening Dental Screen Date: 05/04/25 Did you have a dental visit in the last 12 months?: Yes Did you have a dental problem in the last 6 months where you did not have access to dental care?: No Was dental information given to patient?: Patient has dentist HPI Annual Exam HPI Details Patient is a 35-year-old male here today for new patient annual physical. Patient has a past medical history significant for hypertension and obesity. .. Hypertension: Today's blood pressure in office elevated Patient continues on lisinopril hydrochlorothiazide. Does report over last 4 days not taking blood pressure medication as he has ran out.. He reports blood pressures has been stable more at home. While in the office he feels very anxious and does feel his blood pressure raise. Of note does have family history of high blood pressure. 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 Vaccines: Up-to-date with COVID vaccines, needs tetanus vaccine [facility] Medical History (Updated 05/05/25 @ 07:14 by Jayjay Moya PA-C) Gallbladder polyp Tenonitis of left orbit HTN, goal to be determined Surgical History No pertinent past surgical history Family History Mother FH: HTN (hypertension) Heart attack, Onset Age: 68 Father No problems noted. Other Substance use disorder Social History (Updated 05/04/25 @ 15:08 by Jayjay Moya PA-C) Housing: Condominium Alcohol intake: current Alcohol intake frequency: a few times a month Alcohol type: beer Patient Tobacco Use Status: Never used Tobacco Tobacco use type: Cigarette e-Cigarette/Vaping Use: Never Used service: No Current occupational status: employed Current occupation: [employer] Cognitive needs: No Hearing needs: No Vision needs: No Questionnaire PHQ-9 Over the last 2 weeks, how often have you been bothered by any of the following problems? 1. Little interest or pleasure in doing things: not at all 2. Feeling down, depressed, or hopeless: not at all 3. Trouble falling or staying asleep, or sleeping too much: not at all 4. Feeling tired or having little energy: not at all 5. Poor appetite or overeating: not at all 6. Feeling bad about yourself - or that you are a failure or have let yourself or your family down: not at all 7. Trouble concentrating on things, such as reading the newspaper or watching television: not at all 8. Moving or speaking so slowly that other people could have noticed. Or the opposite - being so fidgety or restless that you have been moving around a lot more than usual: not at all 9. Thoughts that you would be better off or of hurting yourself in some way: not at all Total score: 0 Depression Screening Interpretation: Negative Depression Screening Done: Yes 75483 - PHQ-9 Billing: Yes Source: Developed by Drs. Albert Cleveland, Carine Sweet, Tate Vidales and colleagues, with an educational praneeht from [employer]. Thrive Questionnaire Date Thrive assessed: 05/04/25 I am a: Patient What is your living situation today?: I have a steady place to live Within the past 12 months, did the food you bought not last and you didn't have the money to get more?: Never true Within the past 12 months, did you worry whether your food would run out before you got money to buy more?: Never true Do you have trouble paying for medicines?: No Do you have trouble getting transportation to medical appointments?: No Do you have trouble paying your heating and electricity bill?: No Do you have trouble taking care of your child, family member or friend?: No Do you have trouble with day-to-day activities such as bathing, preparing meals, shopping, managing finances, etc.?: No Are you currently unemployed and looking for a job?: No Are you interested in more education?: No Please select the resources that you would like help with: None Currently or been in a relationship where the following occur: No concerns reported THRIVE Score: 0 AUDIT C Alcohol Use Questionnaire (AUDIT-C) 1. How often do you have a drink containing alcohol?: 2-4 times a month 2. How many drinks containing alcohol do you have on a typical day when you are drinking?: 3 or 4 3. How often do you have six or more drinks on one occasion?: Monthly Total Score: 5 DAPHNEY-7 AMB Questionnaire DAPHNEY-7 Date DAPHNEY - 7 assessed: 05/04/25 Feeling nervous, anxious, or on edge: 1 = Several days Not being able to stop or control worryin = Not at all Worrying too much about different things: 0 = Not at all Trouble relaxin = Not at all Being so restless that it is hard to sit still: 0 = Not at all Becoming easily annoyed or irritable: 0 = Not at all Feeling afraid as if something awful might happen: 0 = Not at all Total DAPHNEY-7 score (0-4 normal; 5-9 mild; 10-14 moderate; 15-21 severe): 1 Source: Developed by Drs. Albert Cleveland, Carine Sweet, Tate Vidales and colleagues, with an educational praneeth from [employer]. DAPHNEY-7 Assessment Billing DAPHNEY-7 Assessment Tool: DAPHNEY-7 Assessment 94065 Review of Systems Const Denies body aches, Denies chills, Denies excessive sweating, Denies fatigue, Denies fever(s) and Denies headache(s) Eyes Denies blurry vision ENT Denies dysphagia, Denies vertigo, Denies dizziness, Denies headache(s), Denies hearing loss and Denies tinnitus Card Denies chest pain, Denies chest pain with activity, Denies syncope, Denies irregular heart rhythm and Denies dyspnea Resp Denies chest congestion, Denies cough, Denies hemoptysis, Denies dyspnea and Denies wheezing GI Denies abdominal pain, Denies melena, Denies hematochezia, Denies coffee ground emesis, Denies dysphagia, Denies diarrhea, Denies nausea and Denies vomiting Denies difficulty urinating, Denies dysuria, Denies urinary frequency, Denies urinary hesitancy and Denies urinary urgency Musc Denies arthralgias, Denies limited range of motion, Denies muscle cramps and Denies muscle weakness Skin/Breast Denies rash and Denies skin ulcer Neuro Denies Abnormal speech present, Denies confusion, Denies vertigo, Denies dizziness, Denies syncope, Denies headache(s), Denies memory loss and Denies seizure-like activity Psych Denies anxiety, Denies confusion, Denies depression, Denies memory loss, Denies panic attacks and Denies paranoia Endo Denies excessive sweating, Denies fatigue, Denies flushing, Denies polydipsia and Denies polyuria Aller/Immun Denies wheezing Physical exam (Primary Care) Vital Signs: Last Vital Signs Temp 97.3 F 05/04/25 14:41 Pulse 99 05/04/25 14:41 BP 150/94 H 05/04/25 14:41 Pulse Ox 100 05/04/25 14:41 Oxygen Delivery Method Room Air 05/04/25 14:41 BMI result Body Mass Index 29.8 Tobacco/Smoking Status: Tobacco use Status Tobacco use date assessed 05/04/25 05/04/25 14:38 Patient Tobacco Use Status Never used Tobacco 05/04/25 15:08 Tobacco use type Cigarette 05/04/25 15:08 e-Cigarette/Vaping Use Never Used 05/04/25 15:08 PHQ-9: PHQ-9 Score PHQ-9: Total score 0 05/04/25 15:30 Depression Screening Interpretation: Negative Thrive Assessment: Date of Thrive Assessment Date Thrive assessed 05/04/25 05/04/25 14:38 Currently or been in a relationship where the following occur: No concerns reported Const General: cooperative, comfortable, no acute distress, alert and awake; No confusion Orientation/consciousness: oriented to person, oriented to place, patient oriented x3 and No confusion HENMT Head: Yes normocephalic Ears: external ears normal and TM's normal bilaterally Face and sinus: No sinus tenderness Mouth: Normal oral and palatal mucosa present and tongue normal Teeth and gingiva: dentition normal and gingiva normal Throat: Yes posterior oropharynx normal, Yes tonsils normal and Yes uvula midline Eyes Conjunctivae: conjunctivae normal Sclerae: sclerae normal Pupils: Equal, round and reactive pupils present EOM: EOMs intact bilaterally Direct Ophthalmoscopy: No no photophobia Neck Neck: Yes no lymphadenopathy, No tender and Yes no JVD Thyroid: Thyroid normal Carotids: no bruits Chest Chest palpation & inspection: no tenderness Resp Effort & Inspection: normal respiratory effort, no audible wheezes, not labored and no stridor Auscultation: no crackles, no rales, no rhonchi and no wheezes Cardio Jugular venous distension: no JVD Rate: regular rate, not bradycardic and not tachycardic Rhythm: regular rhythm Bruits: no carotid bruits Peripheral pulses: Peripheral pulses 2+ throughout GI Inspection: Yes normal to inspection, No abdominal wall ecchymosis and No visible herniation Palpation (GI): Soft to palpation, nontender, no guarding, not rigid and No hepatosplenomegaly present Auscultation: normoactive bowel sounds General: Yes no CVA tenderness Back/Spine/Pelvis Back: no CVA tenderness and No back tenderness Cervical Spine: cervical ROM normal Thoracic/Lumbar Spine: thoracic and lumbar spine normal to inspection, straight leg raise negative bilaterally, No thoraco-lumbar ROM limited and No lumbar spinal tenderness Skin Lesions: no lesions Rashes: no rashes Wounds: no wounds Neuro General: oriented to person, oriented to place, patient oriented x3, CN's II-XI intact bilaterally and No confusion Cranial nerves: Yes Equal, round and reactive pupils present and Yes Normal accommodation reflex present Cognition (Neuro): normal cognition Speech: No Abnormal speech present Gait exam (Neuro): Normal gait present Motor exam (neuro): 5/5 motor strength present throughout Extrem Right upper extremity: full ROM; no cyanosis Left upper extremity: full ROM; no cyanosis Right lower extremity: no edema Left lower extremity: no edema Psych Appearance: grossly normal Mental Status: mental status grossly normal Affect: normal affect Attitude: cooperative Thought process: Normal thought process present Immunizations Boostrix Tdap 2.5 Lf unit-8 mcg-5 Lf/0.5 mL intramuscular syringe Performing Provider: Jayjay Moya PA-C [facility] Administered by: ISABEL Leach on 05/04/25 16:40 Dose Route Admin Location Dispensed Lot Number Expiration Date 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 0.5 mL IM Left Deltoid 0.5 mL [id number] 12/17/26 [id number] [employer] Total Dispensed Waste 0.5 mL 0 % VIS Given Date VIS Provided VIS Publication Date 05/04/25 Single Vaccine 24 Eligibility Eligibility Date Funding Source Not [facility] Eligible 05/04/25 Private Coding Level of Care Code Est Pt Prev Care [id number]([id number]) Diagnoses Annual physical exam Z00.00 Primary hypertension I10 Hypertension type: primary hypertension Additional Codes DAPHNEY-7 Assessment Billing - DAPHNEY-7 Assessment Tool: DAPHNEY-7 Assessment 80179 ([id number]) PHQ-9 - 83589 - PHQ-9 Billing: Yes ([id number]) Assessment & Plan Assessment & Plan (1) Annual physical exam: Code(s): Z00.00 - Encounter for general adult medical examination without abnormal findings Category: Medical Plan: As per HPI (2) HTN (hypertension): Code(s): I10 - Essential (primary) hypertension Category: Medical Qualifiers: Hypertension type: primary hypertension Qualified Code(s): I10 - E ssential (primary) hypertension Plan: The patient is advised to resume his blood pressure medication to manage his essential hypertension. He is counseled on the importance of medication adherence and the impact of dietary sodium and alcohol on blood pressure. A follow-up blood pressure check is recommended to ensure control once medication is resumed. Orders: Orders Lipid Panel 05/04/25 E78.1 - Pure hyperglyceridemia Comprehensive [place]. Panel Fast 05/04/25 I10 - Essential (primary) hypertension Complete Blood Count no Diff 05/04/25 I10 - Essential (primary) hypertension Microalbumin, Random (w Creat) 05/04/25 I10 - Essential (primary) hypertension TDaP Immunization 05/04/25 I10 - Essential (primary) hypertension, Z23 - Encounter for immunization Medications: Refilled lisinopril-hydrochlorothiazide 10-12.5 mg 1 tab PO DAILY 90 tabs 1RF 90 days I10 - Essential (primary) hypertension Patient Instructions: Goal: Blood pressure to be below 140/90 Barriers: Adherence to physical activity and healthy eating habits
[2025-05-04 14:41] VITALS: BP 150/94; PULSE 99; TEMP 36.3; O2SAT 100; BMI 29.8
== END 2025-05-04 15:32 | disposition home or self-care (01) ==
LOC: HO.HMCH 14:32
PROVIDERS: PCP Physician Assistant; Visit Provider Physician Assistant
DX: Z00.00 Encounter for general adult medical examination without abnormal findings (principal); I10 Essential (primary) hypertension

== ENCOUNTER → 2025-05-04 14:31 | Outpatient (BNVA) | payer BC, SELFPAY | PROVIDERS: PCP Physician Assistant; Visit Provider Physician Assistant | DX: Z00.00 Encounter for general adult medical examination without abnormal findings (principal); Z23 Encounter for immunization; I10 Essential (primary) hypertension; E66.9 Obesity, unspecified; Z68.29 Body mass index [BMI] 29.0-29.9, adult; Z79.899 Other long term (current) drug therapy; Z13.31 Encounter for screening for depression; Z13.30 Encounter for screening examination for mental health and behavioral disorders, unspecified | CPT/HCPCS: 90471; 90715; 96127 ==